=== PATIENT | female | born 1950 | race Caucasian/White ===

== ENCOUNTER 2024-06-10 04:59 | Inpatient (IN) | payer MEDICARE, OTHER, SELFPAY ==
[2024-06-09 20:10] VITALS: BP 157/92
[2024-06-09 20:26] LABS: % Basophils 0.4 % (0-2); % Eosinophils 0.6 % (0-6); % Immature Granulocytes 0.3 % (0-0.5); % Lymphocytes 14.5 % (20.5-51.1); % Monocytes 11.8 % (1.7-9.3); % Neutrophils 72.4 % (42.2-75.2); Absolute Eosinophils 0.1 10^3/uL (0-0.7); Absolute Lymphocytes 1.5 10^3/uL (1.2-3.4); Absolute Monocytes 1.2 10^3/uL (0.1-0.6); Absolute Neutrophils 7.4 10^3/uL (1.4-6.5); Hematocrit 38.6 % (37.0-47.0); Hemoglobin 13.4 g/dL (12.0-16.0); Mean Corp Hgb Conc. 34.7 g/dL (33.0-37.0); Mean Corpuscular Volume 92.1 fL (81.0-99.0); Mean Platelet Volume 9.1 fL (7.4-10.4); Nucleated Red Blood Cells % 0 %; Platelet Count 288 10^3/uL (130-400); Red Blood Cell Count 4.19 10^6/uL (4.20-5.40); Red Cell Dist. Width 12.4 % (11.5-14.5); White Blood Cell Count 10.2 10^3/uL (4.8-10.8)
[2024-06-09 20:46] LABS: ALT (SGPT) 31 U/L (0-35); AST (SGOT) 33 U/L (14-36); Albumin 4.5 g/dl (3.5-5.0); Alkaline Phosphatase 90 U/L (38-126); Blood Urea Nitrogen 12 mg/dl (7-17); Calcium 9.4 mg/dl (8.4-10.2); Carbon Dioxide 18 mmol/L (22-30); Chloride 105 mmol/L (98-107); Glucose 123 mg/dl (70-99); Lipase 113 U/L (23-300); Potassium 4.3 mmol/L (3.5-5.1); Sodium 135 mmol/L (135-145); Total Bilirubin 0.8 mg/dl (0.2-1.3); Total Protein 7.5 g/dl (6.3-8.2); eGFR > 60.00
[2024-06-09 22:07] LABS: Urine Albumin Negative (Neg - Trace); Urine Bilirubin Negative (Negative); Urine Character Clear (Clear); Urine Color Yellow; Urine Glucose Negative (Negative); Urine Ketone Negative (Negative); Urine Leukocyte 1+ (Negative); Urine Nitrite Negative (Negative); Urine Occult Blood Negative (Negative); Urine Specific Gravity 1.015 (<1.030); Urine Urobilinogen Negative (Neg - 1+)
[2024-06-09 22:12] LABS: Urine Squamous Cell >30 /LPF (Few)
[2024-06-09 22:13] LABS: Urine Bacteria Moderate (Negative); Urine Red Blood Cell 0-2 /HPF (0-2); Urine White Cell 26-30 /HPF (0-5)
[2024-06-09 23:43] VITALS: BP 138/67
[2024-06-10] VITALS (8 sets, daily range): BP systolic 116–159; BP diastolic 59–78; BMI 28.9
--- NOTE | 2024-06-10 00:13 | ED.GENMED ---
History of Present Illness
General
Chief Complaint: Abdominal Pain
Source: patient
Exam Limitations: none
Time Seen by Provider: 06/10/24 00:02
History of Present Illness
History of Present Illness:
See MDM
Past History
Past History
ED Past Medical History: HTN and Hypercholesterolemia
ED Past Surgical History: Orthopedic (Bunion surgery) and Other (Breast reduction, )
Social History
Tobacco: Former smoker
Alcohol: Occasional
Personal:
Living: with family
Phy Exam
Physical Exam
Physical Exam:
See MDM
Course
Orders/Labs/Results
Orders:
Orders
06/09/24 20:12
IV Insert/Care/Rem.- Treatment PRN
06/09/24 20:14
Complete Blood Count/With Diff Urgent
Comprehensive Metabolic Panel Urgent
Lipase Urgent
06/09/24 21:59
Urinalysis Urgent
Date Specimen was Collected: 06/09/24
Time Specimen was Collected: 21:42
Urine Microscopic Urgent
Date Specimen was Collected: 06/09/24
Time Specimen was Collected: 21:42
06/10/24 00:09
HYDROmorphone [Dilaudid] 0.5 mg IV NOW STA
Ondansetron Injectable [Zofran] 4 mg IV NOW STA
06/10/24 00:12
CT Abd/pelvis W Iv Cont Urgent
Comment:
Reason For Exam: LLQ pain
06/10/24 02:56
HYDROmorphone [Dilaudid] 0.5 mg IV NOW STA
LevoFLOXacin 500 MG/100 ML [Levaquin] 500 mg in 100 ml IV NOW
MetroNIDAZOLE 500 MG/100 ML [Flagyl 500 mg] 100 ml IV NOW
Abnormal Lab Results
06/09/24 06/09/24
20:14 21:59
RBC 4.19 L 10^6/uL
(4.20-5.40)
MCH 32.0 H pg
(27.0-31.0)
Absolute Neuts (auto) 7.4 H 10^3/uL
(1.4-6.5)
Absolute Monos (auto) 1.2 H 10^3/uL
(0.1-0.6)
Lymphocytes % 14.5 L %
(20.5-51.1)
Monocytes % 11.8 H %
(1.7-9.3)
Carbon Dioxide 18 L mmol/L
(22-30)
Glucose 123 H mg/dl
(70-99)
Ur Leukocyte Esterase 1+ A
(Negative)
Urine WBC 26-30 A /HPF
(0-5)
Urine Bacteria Moderate A
(Negative)
06/09/24 20:14
06/09/24 20:14
Vital Signs
Initial and Last Documented VS:
Initial Vital Signs
Temp Pulse Resp BP Pulse Ox
98.1 F 112 19 157/92 98
06/09/24 20:10 06/09/24 20:10 06/09/24 20:10 06/09/24 20:10 06/09/24 20:10
Last Documented Vital Signs
Temp Pulse Resp BP Pulse Ox
98.1 F 112 19 120/64 96
06/09/24 20:10 06/09/24 20:10 06/09/24 20:10 06/10/24 00:00 06/10/24 00:45
MDM/Problems Addressed
Differential Diagnosis Includes:
HPI and MDM Narrative:
73-year-old female presenting for evaluation of left lower quadrant pain. She does have a history of diverticulitis. Patient states she was told to go to the emergency department if she ever develops pain like this again. She had an episode like
this 2 years ago that almost required surgery, per patient.
On exam, patient does have mild left lower quadrant tenderness. There is no rebound. She is otherwise well-appearing and nontoxic. Will provide pain medicine. Given her history, will obtain CT to rule out any evidence of diverticulitis or
possible abscess formation
Physical exam
General: Well appearing and non-toxic
HEENT: protecting airway
Neck: appears supple
CV: No evidence of cyanosis
Resp: No accessory muscle use
Abd: Non-distended. Point tenderness to left lower quadrant without rebound
Extremities: No deformities
Neuro: alert
Psych: Normal affect
Skin: Intact
Problems Addressed including Acute and Chronic Conditions affecting care:
1. Left lower quadrant pain
Acuity: acute
Prognosis: stable
Details: Given her history, will obtain CT
Updates
CT shows diverticulitis with concern for phlegmon versus early abscess. Because of this, will start IV Levaquin and Flagyl and admit
Differential Diagnosis (but not limited to): Diverticulitis, constipation
Testing considered: Abd US
Drug therapy (if applicable): OTC meds, please see d/c instruction regarding Rx drugs
Amount and/or Complexity of Data Reviewed
Clinical info obtained from: Patient
External data reviewed: N/A
Labs I independently reviewed (but not limited to): Urinalysis appears contaminated
Radiology: The CT scan was personally and independently reviewed. In addition, official CT report reviewed.
Pulse Ox: not hypoxic
EKG independently reviewed: N/A
Blank Driller: N/A
Critical Care: N/A
Risk of Complication:
Social Determinants of health: Good social support
Discussed with other providers: Hospitalist
Escalation of Care includes Admit/Obs: Given diverticulitis with concern for possible early abscess, will admit
Occasional wrong word or 'sound a like' substitutions may have occurred due to the inherent limitations of voice recognition software. Read the chart carefully and recognize, using context, where substitutions have occurred.
*Critical Care Note
Total Time (30-74mins, 75-104mins- exclusive of procedures): Not Applicable
ED Attending Note
-
Portions of this chart may have been created with voice recognition software.� Occasional wrong word or��sound alike� substitutions may have occurred due to the inherent limitations of voice recognition software.
Discharge Plan
Departure
Patient Disposition: Admit
Date of Disposition: 06/10/24
Time of Disposition: 02:59
Admit to: Med/Surg
Presentation/result/management discussed w/ accepting MD/DO: Hospitalist
Discharge Problem:
Diverticulitis
Prescriptions:
No Action
lisinopril 10 mg Tablet
10 mg PO DAILY
rosuvastatin 20 mg Tablet
20 mg PO DAILY
cholecalciferol (vitamin D3) [Vitamin D3] 25 mcg (1,000 unit) Tablet
25 mcg PO DAILY
acetaminophen 325 mg Tablet
650 mg PO Q4HPRN PRN (Reason: Mild Pain / Temp > 101) Qty: 14 0RF
amoxicillin-pot clavulanate [Augmentin] 500-125 mg tablet
1 tab PO BID Qty: 20 0RF
Referrals:
Che Chris DO [Family Provider] -
Interventions
Interventions:
*Risk Screen - Suicide Last Done: 06/09/24 20:10
*General Assessment Last Done: 06/09/24 23:32
*Neglect/Abuse Screening Last Done: 06/09/24 20:10
ED- Fall Risk Assessment Last Done: 06/09/24 23:34
*ED COVID-19 Vaccine History Last Done: 06/09/24 23:32
XP-Dcxnjy-Fpfkryigjg Assessment Last Done: 06/09/24 23:32
Discharge Date and Time
Print Language: CUBAN
[2024-06-10] MEDS: DILAUDID 0.5 MG IV ×2 (00:15→03:11)
[2024-06-10] MEDS: ZOFRAN 4 MG IV ×2 (00:15→04:24)
[2024-06-10] MEDS: FLAGYL 500 MG 100 IV ×3 (03:11→20:27)
--- NOTE | 2024-06-10 04:02 | HPS.HSE ---
Family Physician
-
Family Physician: Che Chris
Chief Complaint
-
Abdominal pain
History of Present Illness
73-year-old woman who comes in for evaluation of left lower quadrant pain. She has a history of diverticulitis. She had an episode like this 2 years ago that almost required surgery, per patient. In the ED On initial exam, patient had mild left
lower quadrant tenderness without rebound. CT showed evidence of diverticulitis without obvious abscess formation. No free air. At the time of my exam she was actively vomitting and was a limited historian.
Medical History
Past Medical History
Past Medical History: Reports Other
Additional Past Medical History:
Diverticulitis of colon
Hx of colonic polyps
Abscess of sigmoid colon due to diverticulitis
Acute lower urinary tract infection
Hemochromatosis, unspecified
Accelerated essential hypertension
Atrophic vaginitis
Hyperlipidemia
Fatty Liver
Back Surgery
Breast Reduction
Toe surgery
Bunionectomy
Abdominal Pain
Past Surgical History: Reports Other
Additional Past Surgical History:
See above
Social History
Tobacco: Non-smoker
Alcohol: Occasional
Drug: None
Family History
Family History: Not pertinent
Allergies / Home Medications
Allergies reflects when Allergies were last updated in [facility].
Home Medications with original date entered in [facility]
Allergy/Medication List:
Allergies
Allergy/AdvReac Type Severity Reaction Status Date / Time
No Known Allergies Allergy Unverified 06/09/24 20:10
Home Medications
cholecalciferol (vitamin D3) 25 mcg (1,000 unit) tablet (Vitamin D3) 25 mcg PO DAILY 11/17/22
lisinopril 10 mg tablet 10 mg PO DAILY 11/17/22
rosuvastatin 20 mg tablet 20 mg PO DAILY 11/17/22
acetaminophen 325 mg tablet 650 mg (2 x 325 mg) PO Q4HPRN PRN Mild Pain / Temp > 101 #14 tabs 11/20/22
amoxicillin 500 mg-potassium clavulanate 125 mg tablet (Augmentin) 1 tab PO BID #20 tabs 11/20/22
Review of Systems
-
History Source: Patient
A 12 point ROS was completed and negative except as noted: Yes
Abdomen/GI: Reports Abdominal Pain, Nausea and Vomiting
Physical Exam
Vital Signs
Vital Signs
Temp Pulse Resp BP Pulse Ox
98.1 F 112 19 120/64 96
06/09/24 20:10 06/09/24 20:10 06/09/24 20:10 06/10/24 00:00 06/10/24 00:45
Physical Exam
General: Well Developed, Well Nourished and Appears in Distress
HEENT: Nose Appears Normal and Ears Appear Normal
Respiratory: Clear
Cardiac: S1/S2 and Regular Rhythm
GI: Soft, Non Tender and Non Distended
Musculoskeletal: No Clubbing, No Cyanosis and No Edema
Skin: Warm and Dry
Neuro: Awake, Alert, Oriented and AO x 3
Psych: Calm
Laboratory Results
-
06/09/24 20:14
06/09/24 20:14
Laboratory Results
Total Bilirubin 0.8 mg/dl (0.2-1.3) 06/09/24 20:14
AST 33 U/L (14-36) 06/09/24 20:14
ALT 31 U/L (0-35) 06/09/24 20:14
Alkaline Phosphatase 90 U/L (38-126) 06/09/24 20:14
Lipase 113 U/L (23-300) 06/09/24 20:14
Data Reviewed
-
Lab Data: Labs Reviewed by me
Impression/Plan
-
IMPRESSION:
73 woman with diverticulitis, abd pain, nausea and vomitting
PLAN:
1. Diverticulitis - acute on chronic
IV levaquin and flagyl
NPO
IV fluids
Zofran
NG tube if vomitting continues
Full code
VCD for DVTp
[2024-06-10] MEDS: LEVAQUIN 100 IV (04:26)
[2024-06-10] MEDS: NSS 1000 IV ×3 (04:38→20:27)
[2024-06-10] MEDS: PHENERGAN 50.25 MG IV (05:03)
--- NOTE | 2024-06-10 06:26 | PTCARENOTE ---
Pt arrived to floor via stretcher from the ED. Pt able to take few steps from stretcher to bed with assistance, pt with generalized weakness due to vomiting, stable on feet. Pt AAOx3. HR Reg. lungs clear. POX 99% on RA. Pt report LLQ abd tenderness.
+ bowel, round abd. Palpable peripheral pulses. Right wrist int infusing NSS@125ml/hr. Pt reports pain at tolerable level at this time. Nausea improved. Call chacon in reach. Will continue to monitor.
[2024-06-10 06:45] LABS: Hemoglobin 12.9 g/dL (12.0-16.0); Mean Corp Hgb Conc. 33.9 g/dL (33.0-37.0); Mean Corpuscular Hgb 31.9 pg (27.0-31.0); Mean Corpuscular Volume 93.8 fL (81.0-99.0); Mean Platelet Volume 9.2 fL (7.4-10.4); Platelet Count 249 10^3/uL (130-400); Red Blood Cell Count 4.05 10^6/uL (4.20-5.40); Red Cell Dist. Width 12.3 % (11.5-14.5)
[2024-06-10 07:06] LABS: Blood Urea Nitrogen 10 mg/dl (7-17); Calcium 8.7 mg/dl (8.4-10.2); Carbon Dioxide 22 mmol/L (22-30); Chloride 103 mmol/L (98-107); Estimated Creatinine Clearance 58 ml/min; Glucose 163 mg/dl (70-99); Lipase 53 U/L (23-300); Potassium 3.8 mmol/L (3.5-5.1); Sodium 137 mmol/L (135-145); eGFR > 60.00
[2024-06-10 07:33] LABS: TSH 2.39 uIU/ml (0.47-4.68)
--- NOTE | 2024-06-10 10:35 | W.PN.HOSP.TC ---
Today's Communication/Plan
-
Start on clear liquid diet
Switch over to ceftriaxone from Levaquin. Continue with Flagyl
Assessment / Plan
Assessment / Plan
Acute uncomplicated sigmoid diverticulitis-second episode.
Improving pain and tenderness. No nausea today. Will start on clear liquid diet. Continue with antibiotics but would favor ceftriaxone over Levaquin due to our lab E. coli sensitivities.
Hypertension-continue with lisinopril
Hyperlipidemia-continue with statins.
Full code
Anticipated Discharge: 24 - 48 hours
Subjective/Interval History
-
Date of Service: June 10, 2024
Feels much improved with regards to abdo pain today.
Nausea as well much improved. No bowel movements.
No fever chills.
Had 1 bout of prior diverticulitis in 2019.. She says she is up-to-date with a colonoscopy screening.
Objective Data
-
Labs:
Laboratory Results
06/10/24
06:15
WBC 8.0
Hgb 12.9
Hct 38.0
Plt Count 249
Sodium 137
Potassium 3.8
Chloride 103
Carbon Dioxide 22
BUN 10
Creatinine 0.7
Glucose 163 H
Calcium 8.7
Vital Signs:
Vital Signs
Temp Pulse Resp BP Pulse Ox
97.7 F 78 18 128/67 96
06/10/24 07:39 06/10/24 07:39 06/10/24 07:39 06/10/24 07:39 06/10/24 07:39
Review of Systems
-
Respiratory: Denies Trouble Breathing
Cardiac: Denies Chest Pain
Neuro: Denies Dizzy
Physical Exam
-
General: No Apparent Distress
HEENT: Moist Mucous Membranes
Respiratory: Non Labored Respirations; Negative Accessory Resp Muscle Use
GI: Soft, Nondistended, Normal Bowel Sounds and Tender (Discomfort in general. More so localized to left lower quadrant but no rebound guarding rigidity. Patient feels much improved with regards to tenderness)
Neuro: AO x 3
Data Reviewed
-
Labs: Labs Reviewed by me
[2024-06-10] MEDS: STERILE WATER FOR INJECTION 20 ML IV (10:59)
[2024-06-10] MEDS: ROCEPHIN 2000 MG IV (11:00)
[2024-06-10] MEDS: CRESTOR 20 MG PO (13:24)
[2024-06-10] MEDS: ZESTRIL 10 MG PO (13:24)
[2024-06-10] MEDS: TORADOL 15 MG IV (20:35)
[2024-06-11] MEDS: FLAGYL 500 MG 100 IV ×3 (03:55→19:33)
[2024-06-11] MEDS: TYLENOL 650 MG PO ×3 (06:09→19:43)
[2024-06-11 07:43] VITALS: BP 134/67
[2024-06-11] MEDS: NSS 1000 IV ×2 (07:51→17:02)
[2024-06-11] MEDS: ZESTRIL 10 MG PO (07:53)
[2024-06-11] MEDS: CRESTOR 20 MG PO (07:53)
--- NOTE | 2024-06-11 10:19 | CM ---
CM met with pt bedside
Pt resides with her spouse i a 2SH- she nirmally enters through basement with 14 steps to main living area
1STE home through front door, full flight to 2nd floor
[place] sa 1st floor bedroom if needed
Independent with her ADLs, no DMEs, drives+
Denies financial insecurities
Rx through [employer]
PCP- Che Chris
Rx- [facility]
Discharge Disposition- anticipate home, no needs
--- NOTE | 2024-06-11 10:55 | CON.CRS ---
Consultation
-
Date/Time Consultation Requested: 06/11/2024, 8:06
Date/Time Consultation Performed: 06/11/2024, 9:45
Requesting Provider: Cecile Chavez MD
Performing Provider: Eddy Pulliam MD
Reason for Consultation: diverticulitis
Medical History
-
Chief Complaint: abdominal pain
History of Present Illness:
73-year-old female, with a previous history of diverticulitis, presents today due to left lower quadrant pain. The patient was previously seen by Dr. Carrero in October 2022 for uncomplicated sigmoid diverticulitis. That was her first attack. She
then saw him later in the year in an outpatient setting and complained of diverticulitis like symptoms and was placed on antibiotics and on a clear liquid diet and it resolved on its own. She did not have imaging at this time. She had been doing
well up until 2 days ago where she experienced left lower quadrant pain that was similar to her prior attack. She did have some vomiting upon arrival to the hospital. Her vitals have remained normal and she has remained afebrile. Her white count
has remained normal. CT of the abdomen and pelvis showed diverticulitis in the central left paramedian pelvis with no evidence or abscess or free intraperitoneal air. Her last colonoscopy was in [address] Joy which showed diverticulosis.
Given her history, we have been consulted for further surgical opinion.
Past Medical History
Past Medical History: Other (HTN, hemachromatosis, h/o colon polyps, diverticulitis (?2 previous times, 1 CT documented), Atrophic vaginitis, hyperlipidemia, fatty liver)
Past Surgical History: Other (Bilateral Bunionectomies, Breast Reduction, Lumbar Discectomy)
Social History
Tobacco: Non-Smoker
Alcohol: Daily
Drug: None
Family History
Family History: Reviewed & Not Pertinent
Allergies / Home Medications
Allergy/AdvReac Type Severity Reaction Status Date / Time
No Known Allergies Allergy Unverified 06/09/24 20:10
�Medication �Instructions �Recorded �Confirmed �Type
cholecalciferol (vitamin D3) 25 25 mcg PO DAILY 11/17/22 06/10/24 History
mcg (1,000 unit) tablet (Vitamin
D3)
lisinopril 10 mg tablet 10 mg PO DAILY 11/17/22 06/10/24 History
rosuvastatin 20 mg tablet 20 mg PO DAILY 11/17/22 06/10/24 History
acetaminophen 325 mg tablet 650 mg (2 x 325 mg) PO Q4HPRN PRN 11/20/22 06/10/24 Rx
Mild Pain / Temp > 101 #14 tabs
Review of Systems
-
History Source: Patient
All other systems: Negative unless noted
Abdomen/GI: Abdominal Pain (left lower quadrant)
A 10 point review of systems was completed, and was negative except as per HPI.
Physical Exam
Vital Signs
Temp 97.8 F 06/11/24 07:43
Pulse 81 06/11/24 07:43
Resp Rate 18 06/11/24 07:43
Blood pressure 134/67 06/11/24 07:43
SaO2 98 06/11/24 07:43
06/10/24 06/11/24 06/12/24
06:59 06:59 06:59
Actual Weight 64.92 kg
Body Mass Index (BMI) 28.9
Lab Results / Allergies
06/10/24 06:15
06/10/24 06:15
WBC 8.0 10^3/uL (4.8-10.8) 06/10/24 06:15
Hgb 12.9 g/dL (12.0-16.0) 06/10/24 06:15
Hct 38.0 % (37.0-47.0) 06/10/24 06:15
Plt Count 249 10^3/uL (130-400) 06/10/24 06:15
Abs Immat Gran (auto) 0.0 10^3/uL (0-0.05) 06/09/24 20:14
Neutrophils % 72.4 % (42.2-75.2) 06/09/24 20:14
Allergy/AdvReac Type Severity Reaction Status Date / Time
No Known Allergies Allergy Unverified 06/09/24 20:10
Physical Exam
General: Well Developed, Well Nourished and No Apparent Distress
GI: Soft, Non Tender and Tender (mild LLQ tenderness)
Skin: Warm and Dry
Neuro: AO x 3
Data Reviewed
-
CT Scan: Image Personally Visualized and interpreted, Report Reviewed by me and Discussed with Patient
Labs: Labs Reviewed by me, Discussed with Physician and Discussed with Patient
Old Records: Reviewed
Assessment / Plan
-
Assessment: 73-year-old female with 1 or 2 prior attacks of diverticulitis presents with left lower quadrant pain found to have uncomplicated diverticulitis on CT
Plan:
-Continue to trend labs and vitals
-Advance diet to full's. Okay for low residue dinner if tolerating full's.
-Continue IV antibiotics
-Will likely need eventual elective surgery. This will be discussed in an outpatient setting with Dr. Carrero after this hospitalization.
[2024-06-11] MEDS: STERILE WATER FOR INJECTION 20 ML IV (11:34)
[2024-06-11] MEDS: ROCEPHIN 2000 MG IV (11:34)
--- NOTE | 2024-06-11 12:13 | W.PN.HOSP.TC ---
Today's Communication/Plan
-
Full liquid diet
Continue antibiotics
Assessment / Plan
Assessment / Plan
73-year-old female with abdominal pain
Awake alert
Cardiovascular system S1-S2 appreciated
Chest clear to auscultation
Abdomen mild tenderness in the left lumbar area
# Acute uncomplicated sigmoid diverticulitis-second episode
On clear liquid diet ,passing flatus. Last well movement was Tuesday
Advance to full liquid diets
Continue ceftriaxone and Flagyl
Colorectal surgery evaluation appreciated.
May need elective colon resection as she has had possibly more than 2 times
# Hypertension-continue lisinopril
# Hyperlipidemia-continue statin
# Hemochromatosis
# Ex-smoker
# DVT prophylaxis-add Lovenox
# Full code
Discussed with nursing
Anticipated Discharge: Within 24 hours
Subjective/Interval History
-
Date of Service: June 11, 2024
Objective Data
-
Vital Signs:
Vital Signs
Temp Pulse Resp BP Pulse Ox
97.8 F 81 18 134/67 98
06/11/24 07:43 06/11/24 07:43 06/11/24 07:43 06/11/24 07:43 06/11/24 07:43
I&O
06/10/24 06/11/24 06/12/24
06:59 06:59 06:59
Intake Total 1929
Balance 1929
[2024-06-11 15:18] VITALS: BP 133/65
[2024-06-11] MEDS: PHENERGAN 50.25 MG IV (19:44)
[2024-06-11] MEDS: FIORICET 1 TAB PO (20:19)
[2024-06-11 23:38] VITALS: BP 154/87
[2024-06-12] MEDS: NSS 1000 IV ×2 (01:58→11:07)
[2024-06-12] MEDS: FLAGYL 500 MG 100 IV ×2 (04:07→12:06)
[2024-06-12] MEDS: FIORICET 1 TAB PO (04:11)
[2024-06-12 07:39] VITALS: BP 162/74
[2024-06-12 07:42] LABS: Hematocrit 37.4 % (37.0-47.0); Hemoglobin 12.7 g/dL (12.0-16.0); Mean Corpuscular Hgb 32.1 pg (27.0-31.0); Mean Corpuscular Volume 94.4 fL (81.0-99.0); Mean Platelet Volume 9.4 fL (7.4-10.4); Platelet Count 276 10^3/uL (130-400); Red Blood Cell Count 3.96 10^6/uL (4.20-5.40); White Blood Cell Count 5.5 10^3/uL (4.8-10.8)
[2024-06-12 08:27] LABS: Blood Urea Nitrogen 5 mg/dl (7-17); Calcium 8.7 mg/dl (8.4-10.2); Carbon Dioxide 21 mmol/L (22-30); Chloride 108 mmol/L (98-107); Estimated Creatinine Clearance 58 ml/min; Glucose 85 mg/dl (70-99); Potassium 3.9 mmol/L (3.5-5.1); Sodium 142 mmol/L (135-145); eGFR > 60.00
[2024-06-12] MEDS: ZESTRIL 10 MG PO (09:42)
[2024-06-12] MEDS: CRESTOR 20 MG PO (09:42)
--- NOTE | 2024-06-12 09:56 | W.PN.CRS1 ---
Today's Communication / Plan
-
low residue diet
Assessment/Plan
-
Assessment: 73-year-old female with 1 or 2 prior attacks of diverticulitis presents with left lower quadrant pain found to have uncomplicated diverticulitis on CT
Plan:
1. Continue antibiotics, finish course of outpatient po antibiotics
2. Afebrile, no leukocytosis
3. Advance to low residue diet
4. Outpatient follow up after discharge with colorectal surgery in 2-4 weeks
5. No surgical intervention warranted at this time. Will discuss elective surgery in an outpatient setting with Dr. Carrero.
Subjective Data
Subjective Data
Date of Service: June 12, 2024
Patient states she felt nauseous overnight due to lack of food. She feels well today. She has no nausea or vomiting. Her pain is controlled. She overall feels better.
Objective Data
-
Vital Signs
Temp Pulse Resp BP Pulse Ox
98.0 F 77 18 162/74 98
06/12/24 07:39 06/12/24 07:39 06/12/24 07:39 06/12/24 07:39 06/12/24 07:39
Intake & Output
06/11/24 06/12/24 06/13/24
06:59 06:59 06:59
Intake Total 1929 3780 / 3780
Balance 1929 / 1929 3780 / 3780
Intake:
Oral fluids 480 / 480 2280 / 2280
IV fluids (Total) 1250 / 1250 1500 / 1500
IV piggybacks 200 / 200
Other:
Number of approximated MODERATE 2 3
amounts of urine
Lab Results
06/12/24 06:52
06/12/24 06:52
Physical Exam
-
General: No Acute Distress and AOx3
Abdomen: Soft, Non Distended and Non Tender
Skin: Warm and Dry
--- NOTE | 2024-06-12 10:20 | W.PN.HOSP.TC ---
Addendum entered and electronically signed by Cecile Chavez MD 06/12/24 14:58:
Hemochromatosis-she gets phlebotomy. Next one is scheduled for July 10
Original Note:
Today's Communication/Plan
-
Watch how patient does with the current diet
Assessment / Plan
Assessment / Plan
73-year-old female with abdominal pain
States that she feels slightly bloated and had some loose stools after she had full liquids yesterday. States that she does not like liquid diet wants to try solids to see how she feels.
Awake alert
Cardiovascular system S1-S2 appreciated
Chest clear to auscultation
Abdomen mild discomfort no guarding or rigidity
# Acute uncomplicated sigmoid diverticulitis-second episode or third episode
Advance to low residue
Patient is aware that if she has any pain nausea or vomiting we need to go back to the liquid diet
Continue ceftriaxone and Flagyl
Colorectal surgery evaluation appreciated.
May need elective colon resection as she has had possibly more than 2 times
# Hypertension-continue lisinopril
# Hyperlipidemia-continue statin
# Hemochromatosis
# Ex-smoker
# DVT prophylaxis-Lovenox
# Full code
Discussed with nursing
Discussed with Dr. Carrero at bedside
Anticipated Discharge: Within 24 hours
Subjective/Interval History
-
Date of Service: June 12, 2024
Objective Data
-
Labs:
Laboratory Results
06/12/24
06:52
WBC 5.5
Hgb 12.7
Hct 37.4
Plt Count 276
Sodium 142
Potassium 3.9
Chloride 108 H
Carbon Dioxide 21 L
BUN 5 L
Creatinine 0.7
Glucose 85
Calcium 8.7
Vital Signs:
Vital Signs
Temp Pulse Resp BP Pulse Ox
98.0 F 77 18 162/74 98
06/12/24 07:39 06/12/24 07:39 06/12/24 07:39 06/12/24 07:39 06/12/24 07:39
I&O
06/11/24 06/12/24 06/13/24
06:59 06:59 06:59
Intake Total 1929 3780 / 3780
Balance 1929 3780 / 3780
[2024-06-12] MEDS: STERILE WATER FOR INJECTION 20 ML IV (11:05)
[2024-06-12] MEDS: ROCEPHIN 2000 MG IV (11:06)
--- NOTE | 2024-06-12 13:12 | CM ---
patient seen bedside.
IMM completed.
Per patient diet increased today, possible d/c tomorrow.
Family will transport.
denies home care needs.
Daughter is a nurse.
Plan: home no needs.
--- NOTE | 2024-06-12 14:58 | W.PN.UPDATE ---
Update Note
Progress Note Update
Discussed with the patient she feels really good after she ate. No pain tolerated diet .
Discussed with nursing
Follow-up care discussed with the patient
She will call Dr. Carrero to set up an appointment
Sent a message for
Discharge time more than 35 minutes
--- NOTE | 2024-06-12 14:59 | W.DS.TRANS ---
Addendum entered and electronically signed by Cecile Chavez MD 06/13/24 08:35:
Dictation- [id number]
Original Note:
DC Summary - [facility]
-
Discharge Instructions:
Discharge Diagnosis/Procedures Acute diverticulitis
High cholesterol
Hypertension
Hemochromatosis
Diet Low Residue
Activity As tolerated
Driving Restrictions As prior to admission
Instructions:
Stand-Alone Forms:
Changes to Home Medications: Yes
Discharge Medications:
DC Medications w/original date entered in [facility]
acetaminophen 325 mg tablet 650 mg (2 x 325 mg) PO Q4HPRN PRN Mild Pain #14 tabs 06/12/24
cefdinir 300 mg capsule 300 mg PO BID Gastrointestinal issue #22 caps 06/12/24
cholecalciferol (vitamin D3) 25 mcg (1,000 unit) tablet (Vitamin D3) 25 mcg PO DAILY Supplement #0 tabs 06/12/24
lisinopril 10 mg tablet 10 mg PO DAILY Blood pressure #0 tabs 06/12/24
metronidazole 500 mg tablet 500 mg PO Q8H Gastrointestinal issue 10 days #30 tabs 06/12/24
rosuvastatin 20 mg tablet 20 mg PO DAILY High cholesterol #0 tabs 06/12/24
Home Medication Changes
new
Cefdinir and Flagyl are new
Pending Results: No
[2024-06-12 15:36] VITALS: BP 164/83
== END 2024-06-12 18:11 | disposition home or self-care (01) | DRG 392 ==
LOC: 1 ACUTE 04:59
PROVIDERS: Emergency Medicine; ADMITTING PHYSICIAN Internal Medicine; ATTENDING PHYSICIAN Hospitalist; EMERGENCY PHYSICIAN Student in an Organized Health Care Education/Training Program; FAMILY PHYSICIAN Family Medicine; OTHER PHYSICIAN Surgery
DX: K57.32 Diverticulitis of large intestine without perforation or abscess without bleeding (principal); I10 Essential (primary) hypertension; E83.119 Hemochromatosis, unspecified; E78.00 Pure hypercholesterolemia, unspecified; K76.0 Fatty (change of) liver, not elsewhere classified; Z79.899 Other long term (current) drug therapy; Z87.891 Personal history of nicotine dependence
CPT/HCPCS: 74177; 80048; 80053; 81003; 81015; 83690; 84443; 85025; 85027; 96361; 96365; 96375; 96376; 99284; Q9967

== ENCOUNTER 2024-07-26 06:06 | Inpatient (IN) | payer MEDICARE, OTHER, SELFPAY ==
[2024-07-13 08:30] VITALS: BMI 25.6
[2024-07-13 10:50] LABS: Hematocrit 40.9 % (37.0-47.0); Hemoglobin 13.4 g/dL (12.0-16.0); Mean Corp Hgb Conc. 32.8 g/dL (33.0-37.0); Mean Corpuscular Hgb 31.1 pg (27.0-31.0); Mean Corpuscular Volume 94.9 fL (81.0-99.0); Mean Platelet Volume 9.3 fL (7.4-10.4); Platelet Count 309 10^3/uL (130-400); Red Blood Cell Count 4.31 10^6/uL (4.20-5.40); Red Cell Dist. Width 12.3 % (11.5-14.5); White Blood Cell Count 5.3 10^3/uL (4.8-10.8)
[2024-07-13 11:00] LABS: APTT 29.6 Sec (23.4-35.0); INR 0.94; PT 12.8 Sec (11.4-14.6)
[2024-07-13 11:41] LABS: ALT (SGPT) 48 U/L (0-35); AST (SGOT) 45 U/L (14-36); Albumin 4.4 g/dl (3.5-5.0); Alkaline Phosphatase 81 U/L (38-126); Blood Urea Nitrogen 15 mg/dl (7-17); Calcium 9.4 mg/dl (8.4-10.2); Carbon Dioxide 25 mmol/L (22-30); Chloride 104 mmol/L (98-107); Estimated Creatinine Clearance 49 ml/min; Glucose 91 mg/dl (70-99); Potassium 5.3 mmol/L (3.5-5.1); Sodium 139 mmol/L (135-145); Total Bilirubin 0.4 mg/dl (0.2-1.3); Total Protein 7.5 g/dl (6.3-8.2); eGFR > 60.00
[2024-07-26] VITALS (21 sets, daily range): BP systolic 30–160; BP diastolic 57–87; BMI 25.6
[2024-07-26] MEDS: NORMOSOL-R/PLASMALYTE-A 1000 IV ×3 (06:46→16:46)
[2024-07-26] MEDS: NEURONTIN 600 MG PO (06:47)
[2024-07-26] MEDS: HEPARIN 5000 UNITS SC (06:47)
[2024-07-26] MEDS: TYLENOL 1000 MG PO (06:47)
[2024-07-26] MEDS: ENTEREG 12 MG PO (06:48)
--- NOTE | 2024-07-26 11:47 | W.IMMPOSTOP ---
Addendum entered and electronically signed by Jared Carrero MD 07/26/24 12:10:
Patient's updated in waiting area.
Original Note:
Surgical Immed Post Op Note
-
Primary Surgeon: Amber Carrero MD
Assisting Surgeon: JUAN Johns
Pre-op Diagnosis: sigmoid diverticulitis
Post-op Diagnosis: same
Procedure Performed: 1) robotic low-anterior resection (LAR) 2) flexible sigmoidoscopy
Anesthesia Type: general plus local
Specimen / Cultures: sigmoid and portion of upper rectum
Estimated Blood Loss: 50 cc
Complications: no immediate
Operative Findings: 1) chronically inflamed mid to distal sigmoid 2) some narrowing of most distal rectal valve
Anastomosis at 12 cm.
#19 Dominik in pelvis.
Cintron, stents, ureteral ICG by Dr. Kohler. One stent removed at end.
Will send to med surg.
[2024-07-26 12:26] LABS: Glucose - Point of Care 152 mg/dl (70-99)
[2024-07-26 12:46] LABS: % Basophils 0.2 % (0-2); % Immature Granulocytes 0.4 % (0-0.5); % Lymphocytes 8.3 % (20.5-51.1); % Monocytes 4.2 % (1.7-9.3); % Neutrophils 86.9 % (42.2-75.2); Absolute Immature Granulocytes 0.1 10^3/uL (0-0.05); Absolute Lymphocytes 1.1 10^3/uL (1.2-3.4); Absolute Monocytes 0.5 10^3/uL (0.1-0.6); Hematocrit 36.5 % (37.0-47.0); Hemoglobin 12.1 g/dL (12.0-16.0); Mean Corp Hgb Conc. 33.2 g/dL (33.0-37.0); Mean Corpuscular Hgb 31.8 pg (27.0-31.0); Mean Corpuscular Volume 96.1 fL (81.0-99.0); Nucleated Red Blood Cells % 0 %; Platelet Count 282 10^3/uL (130-400); Red Cell Dist. Width 13.2 % (11.5-14.5); White Blood Cell Count 12.7 10^3/uL (4.8-10.8)
[2024-07-26] MEDS: TORADOL 10 MG IV ×3 (13:06→23:23)
[2024-07-26 13:20] LABS: Blood Urea Nitrogen 18 mg/dl (7-17); Calcium 7.1 mg/dl (8.4-10.2); Carbon Dioxide 17 mmol/L (22-30); Chloride 101 mmol/L (98-107); Estimated Creatinine Clearance 49 ml/min; Glucose 141 mg/dl (70-99); Magnesium 2.7 mg/dl (1.6-2.3); Potassium 4.3 mmol/L (3.5-5.1); Sodium 133 mmol/L (135-145); eGFR > 60.00
[2024-07-26] MEDS: TYLENOL PO (14:22)
[2024-07-26] MEDS: TYLENOL 650 MG PO ×3 (15:51→23:23)
[2024-07-26 21:34] LABS: Glucose - Point of Care 136 mg/dl (70-99)
[2024-07-27] MEDS: DILAUDID 0.5 MG IV ×4 (00:08→16:53)
[2024-07-27] MEDS: TYLENOL 650 MG PO ×2 (03:25→08:13)
[2024-07-27 03:29] VITALS: BP 142/72
[2024-07-27 03:32] VITALS: BMI 26.8
[2024-07-27] MEDS: NORMOSOL-R/PLASMALYTE-A 1000 IV ×2 (05:19→15:02)
[2024-07-27] MEDS: ZOFRAN 4 MG IV ×2 (05:27→18:47)
[2024-07-27] MEDS: TORADOL 10 MG IV ×4 (06:21→23:49)
[2024-07-27 06:36] LABS: % Basophils 0.1 % (0-2); % Immature Granulocytes 0.5 % (0-0.5); % Lymphocytes 12.3 % (20.5-51.1); % Monocytes 11.9 % (1.7-9.3); % Neutrophils 75.2 % (42.2-75.2); Absolute Lymphocytes 0.9 10^3/uL (1.2-3.4); Absolute Monocytes 0.9 10^3/uL (0.1-0.6); Absolute Neutrophils 5.5 10^3/uL (1.4-6.5); Hematocrit 36.5 % (37.0-47.0); Hemoglobin 12.1 g/dL (12.0-16.0); Mean Corp Hgb Conc. 33.2 g/dL (33.0-37.0); Mean Corpuscular Hgb 31.5 pg (27.0-31.0); Mean Corpuscular Volume 95.1 fL (81.0-99.0); Mean Platelet Volume 9.5 fL (7.4-10.4); Nucleated Red Blood Cells % 0 %; Platelet Count 274 10^3/uL (130-400); Red Blood Cell Count 3.84 10^6/uL (4.20-5.40); Red Cell Dist. Width 13.2 % (11.5-14.5); White Blood Cell Count 7.3 10^3/uL (4.8-10.8)
[2024-07-27 06:57] VITALS: BP 134/72
[2024-07-27 07:36] LABS: Blood Urea Nitrogen 20 mg/dl (7-17); Carbon Dioxide 24 mmol/L (22-30); Chloride 100 mmol/L (98-107); Estimated Creatinine Clearance 49 ml/min; Glucose 108 mg/dl (70-99); Magnesium 2.6 mg/dl (1.6-2.3); Potassium 4.4 mmol/L (3.5-5.1); Sodium 133 mmol/L (135-145); eGFR > 60.00
[2024-07-27] MEDS: CRESTOR 20 MG PO (08:13)
[2024-07-27] MEDS: ENTEREG 12 MG PO (08:13)
[2024-07-27] MEDS: PROTONIX 40 MG PO (08:16)
[2024-07-27] MEDS: ZESTRIL 10 MG PO (08:16)
--- NOTE | 2024-07-27 10:00 | W.PN.CRS1 ---
Today's Communication / Plan
-
ngt
npo with sips
lovenox
Assessment/Plan
-
POD#1 robotic low-anterior resection
WBC 7.3, Hgb 12.1
-NGT to be placed given nausea
-NPO with chips only
-Maintain IVFs
-OOB as tolerated
-Stent #2 removed. Maintain berrios today, d/c tomorrow.
-Start lovenox for DVT prophylaxis. TEDS/SCDS in place.
-OR pathology pending
-Maintain ABHAY drain until discharge
-Pain control: Tylenol/Toradol standing, Dilaudid PRN
Subjective Data
Procedure
07/26/2024- 1) robotic low-anterior resection (LAR) 2) flexible sigmoidoscopy
Subjective Data
Date of Service: July 27, 2024
Patient states she has gas. She feels a little distended. She vomited yesterday and this morning. She currently feels nauseous. She is in mild pain.
Objective Data
-
Vital Signs
Temp Pulse Resp BP Pulse Ox
97.5 F 77 16 134/72 99
07/27/24 06:57 07/27/24 06:57 07/27/24 06:57 07/27/24 06:57 07/27/24 06:57
Intake & Output
07/26/24 07/27/24 07/28/24
06:59 06:59 06:59
Intake Total 2620 / 2620
Output Total 1230 / 1230
Balance 1390 / 1390
Intake:
Oral fluids 960 / 960
IV fluids (Total) 1660 / 1660
Normosol 700 / 700
Output:
Drain Output (Total) 130 / 130
Right Lower Abdomen Dima- 130 / 130
Pearce
Urine, Berrios 1100 / 1100
Lab Results
07/27/24 05:25
07/27/24 05:25
Physical Exam
-
General: No Acute Distress and AOx3
Abdomen: Distended, Tender (mild around incisions) and Other (ABHAY serosanginous)
Skin: Warm and Dry
Incision: Clear, Dry, Intact
[2024-07-27 10:53] VITALS: BP 131/60
[2024-07-27] MEDS: TYLENOL PO ×4 (12:11→23:16)
[2024-07-27 15:00] VITALS: BP 132/74
--- NOTE | 2024-07-27 16:21 | CM ---
Met with pt at bedside
Pt reports she lives with her in a 2 story home; 13 steps to enter, 13 steps to 2nd fl
Independent, active, drives
DME - none
SNF/HH - no past hx
Has ride at discharge
PCP - Margaret Chris
Pharm - [facility] in [place]
Plan - anticipate home no needs vs w/VN
[2024-07-27] MEDS: LOVENOX 40 MG SC (18:02)
[2024-07-27 19:00] VITALS: BP 139/75
[2024-07-27] MEDS: ENTEREG PO (19:44)
[2024-07-27] MEDS: DILAUDID 0.25 MG IV (21:10)
[2024-07-27 23:00] VITALS: BP 138/64
[2024-07-28] MEDS: OFIRMEV 100 IV (03:38)
[2024-07-28] MEDS: TYLENOL PO ×3 (05:07→11:22)
[2024-07-28] MEDS: NORMOSOL-R/PLASMALYTE-A 1000 IV ×2 (05:22→14:17)
[2024-07-28] MEDS: TORADOL 10 MG IV ×4 (05:23→23:45)
[2024-07-28 05:53] VITALS: BMI 25.6
[2024-07-28] MEDS: DILAUDID 0.25 MG IV (06:06)
[2024-07-28 07:00] VITALS: BP 148/82
[2024-07-28 08:06] LABS: % Basophils 0.5 % (0-2); % Eosinophils 0.2 % (0-6); % Lymphocytes 26.1 % (20.5-51.1); % Monocytes 11.4 % (1.7-9.3); % Neutrophils 61.8 % (42.2-75.2); Absolute Lymphocytes 1.7 10^3/uL (1.2-3.4); Absolute Monocytes 0.7 10^3/uL (0.1-0.6); Hemoglobin 11.9 g/dL (12.0-16.0); Mean Corpuscular Volume 94.1 fL (81.0-99.0); Mean Platelet Volume 9.6 fL (7.4-10.4); Nucleated Red Blood Cells % 0 %; Platelet Count 232 10^3/uL (130-400); Red Blood Cell Count 3.72 10^6/uL (4.20-5.40); Red Cell Dist. Width 12.9 % (11.5-14.5); White Blood Cell Count 6.5 10^3/uL (4.8-10.8)
[2024-07-28] MEDS: CRESTOR PO (08:34)
[2024-07-28] MEDS: ENTEREG PO (08:35)
[2024-07-28] MEDS: ZESTRIL PO (08:35)
[2024-07-28] MEDS: PROTONIX PO (08:35)
[2024-07-28 08:36] LABS: Blood Urea Nitrogen 19 mg/dl (7-17); Calcium 8.3 mg/dl (8.4-10.2); Carbon Dioxide 28 mmol/L (22-30); Chloride 98 mmol/L (98-107); Estimated Creatinine Clearance 49 ml/min; Glucose 80 mg/dl (70-99); Sodium 136 mmol/L (135-145); eGFR > 60.00
[2024-07-28] MEDS: DILAUDID 0.5 MG IV ×2 (09:36→19:29)
[2024-07-28] MEDS: PROTONIX IV 40 MG IV (11:22)
[2024-07-28] MEDS: NSS (PRESERVATIVE FREE) 10 ML IV (11:22)
--- NOTE | 2024-07-28 13:37 | W.PN.CRS1 ---
Today's Communication / Plan
-
clamp trial of NGT
voiding trial
Assessment/Plan
-
73 yo female with h/o sigmoid diveritculitis now POD#2 robotic low-anterior resection
NGT was placed for n/v post op. Follow up xr without obstructive findings
Now no further nausea, passing flatus/liquid stool
Labs stable
AFVSS, BP elevated
-NGT clamp trial, will remove if does well
-NPO with sips/chips
-Multimodal analgesics
-Continue home dosage of lisinopril
-Maintain IVFs until good PO intake
-OOB as tolerated
-Cintron out for voiding trial
-PPI for GI ppx
-Continue lovenox for DVT prophylaxis. TEDS/SCDS in place.
-OR pathology pending
-Maintain ABHAY drain until discharge
Subjective Data
Procedure
07/26/2024- 1) robotic low-anterior resection (LAR) 2) flexible sigmoidoscopy
Subjective Data
Date of Service: July 28, 2024
Patient seen and examined at bedside with Dr. Pulliam. Denies n/v. Passing flatus and some loose stools. Local irritation from NGT. Notes she feels quite hungry.
Objective Data
-
Vital Signs
Temp Pulse Resp BP Pulse Ox
98.0 F 81 16 148/82 100
07/28/24 07:00 07/28/24 07:00 07/28/24 07:00 07/28/24 07:00 07/28/24 07:00
Intake & Output
07/27/24 07/28/24 07/29/24
06:59 06:59 06:59
Intake Total 2620 / 2620 3230 / 3230
Output Total 1230 / 1230 3965 / 3965 170 / 170
Balance 1390 / 1390 -735 / -735 -170 / -170
Intake:
Oral fluids 960 / 960 2170 / 2170
IV fluids (Total) 1660 / 1660 960 / 960
Normosol 700 / 700
IV piggybacks 100 / 100
Output:
Emesis 600 / 600
Drain Output (Total) 130 / 130 115 / 115 20 / 20
Right Lower Abdomen Dima- 130 / 130 115 / 115 20 / 20
Pearce
Gastrointestinal tube output ( 1350 / 1350
Total)
[place] Sump 1350 / 1350
Urine, Cintron 1100 / 1100 1900 / 1900
Urine, Voided 150 / 150
Lab Results
07/28/24 07:42
07/28/24 07:42
Physical Exam
-
General: No Acute Distress and AOx3
Abdomen: Distended, Tender (mild around incisions) and Other (ABHAY serosanguinous. NGT with blood tinged dark outputs)
Skin: Warm and Dry
Incision: Clear, Dry, Intact
Data Reviewed
-
Diagnostic Radiology: Image Reviewed and Report Reviewed
--- NOTE | 2024-07-28 14:00 | PTCARENOTE ---
Patient with less than 10mL residual from R Nare NGT. Patient with no reports of nausea. Removed per order. Patient upgraded from NPO to clears.
[2024-07-28 14:48] VITALS: BP 172/78
[2024-07-28] MEDS: ZESTRIL 10 MG PO (15:08)
[2024-07-28] MEDS: TYLENOL 650 MG PO ×3 (15:08→23:54)
[2024-07-28] MEDS: LOVENOX 40 MG SC (18:07)
[2024-07-28] MEDS: ENTEREG 12 MG PO (19:29)
[2024-07-28 23:43] VITALS: BP 126/67
[2024-07-29] MEDS: NORMOSOL-R/PLASMALYTE-A 1000 IV (01:37)
[2024-07-29] MEDS: DILAUDID 0.5 MG IV ×2 (02:22→07:59)
[2024-07-29] MEDS: TYLENOL PO (04:23)
[2024-07-29 05:36] LABS: Hematocrit 37.9 % (37.0-47.0); Hemoglobin 12.6 g/dL (12.0-16.0); Mean Corp Hgb Conc. 33.2 g/dL (33.0-37.0); Mean Corpuscular Hgb 31.7 pg (27.0-31.0); Mean Corpuscular Volume 95.2 fL (81.0-99.0); Mean Platelet Volume 9.4 fL (7.4-10.4); Platelet Count 242 10^3/uL (130-400); Red Blood Cell Count 3.98 10^6/uL (4.20-5.40); Red Cell Dist. Width 12.7 % (11.5-14.5); White Blood Cell Count 6.6 10^3/uL (4.8-10.8)
[2024-07-29 06:00] VITALS: BMI 25.3
[2024-07-29 06:02] LABS: Blood Urea Nitrogen 12 mg/dl (7-17); Calcium 8.9 mg/dl (8.4-10.2); Carbon Dioxide 28 mmol/L (22-30); Chloride 99 mmol/L (98-107); Estimated Creatinine Clearance 49 ml/min; Glucose 88 mg/dl (70-99); Potassium 4.1 mmol/L (3.5-5.1); Sodium 135 mmol/L (135-145); eGFR > 60.00
[2024-07-29] MEDS: TORADOL 10 MG IV ×4 (06:12→23:24)
[2024-07-29 07:00] VITALS: BP 164/74
[2024-07-29] MEDS: NSS (PRESERVATIVE FREE) 10 ML IV (07:58)
[2024-07-29] MEDS: ENTEREG 12 MG PO ×2 (07:58→19:39)
[2024-07-29] MEDS: PROTONIX IV 40 MG IV (07:58)
[2024-07-29] MEDS: CRESTOR 20 MG PO (07:58)
[2024-07-29] MEDS: ZESTRIL 10 MG PO (07:59)
[2024-07-29] MEDS: TYLENOL 650 MG PO ×5 (07:59→23:24)
--- NOTE | 2024-07-29 10:27 | W.PN.CRS1 ---
Today's Communication / Plan
-
low residue diet
ambulate more
PO analgesics
Probable discharge tomorrow
Assessment/Plan
-
POD#3 s/p robotic LAR for diverticulitis
NGT was placed for n/v post op. Now tolerating clears and is hungry.
Bowel function has returned
Labs stable
AFVSS, BP slightly elevated
-Advance to low residue diet
-Multimodal analgesics; switch to PO narcotics
-Continue home dosage of lisinopril
-OOB as tolerated
-PPI for GI ppx
-Continue lovenox for DVT prophylaxis. TEDS/SCDS in place.
-OR pathology pending
-Maintain ABHAY drain until discharge
Subjective Data
Procedure
07/26/2024- 1) robotic low-anterior resection (LAR) 2) flexible sigmoidoscopy
Subjective Data
Date of Service: July 29, 2024
Passing flatus and loose stool (as expected). NGT out yesterday and tolerating clears. She is hungry. Her pain manageable but still taking IV Dilaudid.
Objective Data
-
Vital Signs
Temp Pulse Resp BP Pulse Ox
98.2 F 69 14 164/74 99
07/29/24 07:00 07/29/24 07:59 07/29/24 07:00 07/29/24 07:59 07/29/24 07:00
Intake & Output
07/28/24 07/29/24 07/30/24
06:59 06:59 06:59
Intake Total 3230 / 3230 1640 / 1640 960 / 960
Output Total 3965 / 3965 850 / 850 1045 / 1045
Balance -735 / -735 790 / 790 -85 / -85
Intake:
Oral fluids 2170 / 2170 680 / 680
IV fluids (Total) 960 / 960 960 / 960 960 / 960
IV piggybacks 100 / 100
Output:
Emesis 600 / 600
Drain Output (Total) 115 / 115 20 / 20 45 / 45
Right Lower Abdomen Dima- 115 / 115 20 / 20 45 / 45
Pearce
Gastrointestinal tube output ( 1350 / 1350 100 / 100
Total)
[place] Sump 1350 / 1350 100 / 100
Urine, Cintron 1900 / 1900
Urine, Voided 730 / 730 1000 / 1000
Lab Results
07/29/24 04:17
07/29/24 04:17
Physical Exam
-
General: No Acute Distress
Abdomen: Soft, Non Distended and Non Tender
Extremities: No Calf Tenderness
Incision: Clear, Dry, Intact
[2024-07-29] MEDS: ROXICODONE 10 MG PO (11:55)
[2024-07-29 15:00] VITALS: BP 141/70
[2024-07-29] MEDS: LOVENOX 40 MG SC (17:54)
[2024-07-29] MEDS: ROXICODONE 5 MG PO (19:39)
[2024-07-29 23:05] VITALS: BP 163/87
[2024-07-30] MEDS: TYLENOL 650 MG PO ×2 (04:28→08:47)
[2024-07-30] MEDS: ROXICODONE 5 MG PO ×2 (04:29→08:55)
[2024-07-30 06:00] VITALS: BMI 24.9
[2024-07-30] MEDS: TORADOL 10 MG IV (06:11)
[2024-07-30 06:53] VITALS: BP 156/83
[2024-07-30] MEDS: ENTEREG 12 MG PO (08:46)
[2024-07-30] MEDS: ZESTRIL 10 MG PO (08:46)
[2024-07-30] MEDS: CRESTOR 20 MG PO (08:50)
--- NOTE | 2024-07-30 09:48 | W.PN.CRS1 ---
Today's Communication / Plan
-
alma drain removed
discharge
Assessment/Plan
-
POD#4 s/p robotic LAR for diverticulitis
Bowel function has returned
Labs stable
AFVSS
-Continue low reisdue diet
-Multimodal analgesics; switch to PO narcotics
-Continue home dosage of lisinopril
-OOB as tolerated
-PPI for GI ppx
-Continue lovenox for DVT prophylaxis. TEDS/SCDS in place.
-OR pathology pending
-ALMA drain removed at bedside
-Okay for discharge today. Discharge instructions discussed with patient including medications, activity levels, and follow up. All questions answered.
Subjective Data
Procedure
07/26/2024- 1) robotic low-anterior resection (LAR) 2) flexible sigmoidoscopy
Subjective Data
Date of Service: July 30, 2024
Patietn states she feels well. She is tolerating a diet. She denies nausea or vomiting. She tolerating low reside diet. Her pain is controlled. She denies any blood. She is urinating without difficulty. She is passing flatus.
Objective Data
-
Vital Signs
Temp Pulse Resp BP Pulse Ox
97.5 F 72 16 156/83 99
07/30/24 06:53 07/30/24 06:53 07/30/24 06:53 07/30/24 06:53 07/30/24 06:53
Intake & Output
07/29/24 07/30/24 07/31/24
06:59 06:59 06:59
Intake Total 1640 / 1640 2640 / 2640
Output Total 850 / 850 1090 / 1090
Balance 790 / 790 1550 / 1550
Intake:
Oral fluids 680 / 680 1680 / 1680
IV fluids (Total) 960 / 960 960 / 960
Output:
Drain Output (Total)
Right Lower Abdomen Dima-
Pearce
Gastrointestinal tube output (
Total)
[place] Sump /
Urine, Voided 730 / 730 1000 / 1000
Other:
Number of approximated MODERATE 3
amounts of urine
Number of approximated LARGE 2
amounts of urine
Lab Results
07/29/24 04:17
07/29/24 04:17
Physical Exam
-
General: No Acute Distress and AOx3
Abdomen: Soft, Non Distended, Non Tender and Other (ALMA with serous output)
Skin: Warm and Dry
Incision: Clear, Dry, Intact
--- NOTE | 2024-07-30 10:04 | W.DCSUMMARY ---
Discharge Summary
Discharge Data
Date of Admission: 07/26/24
Date of Discharge: 07/30/24
-
Pending Results: Yes (OR pathology)
Hospital Course
73-year-old female presented for a scheduled robotic low anterior resection and flexible sigmoidoscopy due to sigmoid diverticulitis. This was performed by Dr. Jared Carrero on 07/26/2024. She tolerated procedure well and was brought back to the
medical surgical floor. There was a [address] left in place and Cintron and ureteral stents were placed by urology. On postop day 1 she has had episodes of vomiting and was nauseous. An NG tube was placed. Stent #2 was removed at bedside.
Lovenox was started for DVT prophylaxis. On postop day 2 the NG tube was removed. Her diet was slowly advanced from a clear liquid diet to a low residue diet. Her Cintron was removed and she voided without difficulty. On postop day 4 she was
tolerating a diet and her ABHAY drain was removed. Her labs were unremarkable and she remained afebrile. It was determined the patient can be discharged home. All discharge instructions were discussed with the patient and and all questions
were answered. Or pathology was pending at the time of discharge.
Discharge Plan
-
Patient Disposition: Home (Routine Discharge)
Discharge Diagnosis/Procedures: 1) robotic low-anterior resection (LAR) 2) flexible sigmoidoscopy
Diet: Low Residue
Activity: No strenuous activity
Additional Activity: No lifting over 10lbs (gallon of milk)
Driving Restrictions: No driving for 1 week
Bathing Restrictions: OK to Shower
Wound Care: Allow glue to naturally fall off. Do not pick at incisions. Cover ABHAY drain site with gauze and paper tape daily until it seals. OKay to remove to shower.
Instructions: Low-fiber diet
Referrals:
Che Chris DO [Family Provider] -
Jared Carrero MD [Active] - in two weeks
Prescriptions:
New
oxycodone 5 mg tablet
5 mg PO Q6H PRN (Reason: Pain) Qty: 20 0RF
Continued
lisinopril 10 mg Tablet
10 mg PO DAILY Qty: 0 0RF
rosuvastatin 20 mg Tablet
20 mg PO DAILY Qty: 0 0RF
cholecalciferol (vitamin D3) [Vitamin D3] 25 mcg (1,000 unit) Tablet
25 mcg PO DAILY Qty: 0 0RF
metronidazole 500 mg Tablet
500 mg PO DIRECTED
neomycin 500 mg Tablet
1 g PO DIRECTED
Discontinued
Sutab 1.479-0.188- 0.225 gram Tablet
0 tab PO PRE PROCEDURE
Discharge Orders:
Discharge Patient (As Directed); Ordered 07/30/24
Ordered By: Evelyne Jimenez
Discharge Date and Time
Print Language: SUDANESE
--- NOTE | 2024-07-30 10:21 | CM ---
Pt for d/c today
Has ride with
Given IMM
Plan - home no needs
== END 2024-07-30 10:32 | disposition home or self-care (01) | DRG 331 ==
LOC: 2 SOUTH 06:06
PROVIDERS: Physician Assistant; Registered Nurse; ADMITTING PHYSICIAN Surgery; FAMILY PHYSICIAN Family Medicine
PROC: 0DJD8ZZ Inspection of Lower Intestinal Tract, Via Natural or Artificial Opening Endoscopic (ICD-10-PCS; 2024-07-27)
PROC: 0DBP4ZZ Excision of Rectum, Percutaneous Endoscopic Approach (ICD-10-PCS; 2024-07-27)
PROC: 8E0W4CZ Robotic Assisted Procedure of Trunk Region, Percutaneous Endoscopic Approach (ICD-10-PCS; 2024-07-27)
PROC: 0DBN4ZZ Excision of Sigmoid Colon, Percutaneous Endoscopic Approach (ICD-10-PCS; 2024-07-27)
DX: K57.32 Diverticulitis of large intestine without perforation or abscess without bleeding (principal); I10 Essential (primary) hypertension; E78.5 Hyperlipidemia, unspecified; K76.0 Fatty (change of) liver, not elsewhere classified; K91.0 Vomiting following gastrointestinal surgery; Y83.2 Surgical operation with anastomosis, bypass or graft as the cause of abnormal reaction of the patient, or of later complication, without mention of misadventure at the time of the procedure
CPT/HCPCS: 88307; 36415; 74018; 74019; 80048; 80053; 82962; 83036; 83735; 85025; 85027; 85610; 85730; 86850; 86900; 86901; 93005; J1335